=== PATIENT | male | born 1940 | race Caucasian/White ===

== ENCOUNTER 2017-08-12 16:21 | Emergency (ER) | payer MEDICARE, MEDICAID ==
[~2017-08-12] VITALS: Ht 170.2 cm; Wt 78.0 kg
[~2017-08-12 16:21] MED LIST: ASPI-986 PO; LOPE2TAB26 PO; METF500T4 PO; RANI150T7 PO; SIMV20TA6 PO
[2017-08-12 17:26] LABS: BASOPHILS % 0.9 % (0.0-2.0); EOSINOPHILS % 3.3 % (0.0-5.0); HEMATOCRIT. 34.4 % (42.0-52.0); HEMOGLOBIN. 11.7 g/dL (14.0-18.0); LYMPHOCYTES % 16.1 % (20.0-50.0); MEAN CORPUSCULAR HEMOGLOBIN 31.1 pg (28.0-32.0); MEAN CORPUSCULAR VOLUME 91.3 fL (80.0-94.0); MONOCYTES % 7.2 % (2.0-8.0); NEUTROPHILS % 72.5 % (40.0-76.0); PLATELET 187 x1000/uL (130-400); RED BLOOD CELL COUNT 3.77 mill/uL (4.7-6.1); RED CELL DISTRIBUTION WIDTH 13.3 % (11.6-14.6)
[2017-08-12 17:34] LABS: CARBON DIOXIDE 30 mEq/L (21-32); CHLORIDE 104 mEq/L (98-107); ETHANOL BLOOD < 10 mg/dL; PARTIAL THROMBOPLASTIN TIME 25.7 sec (23.4-31.0); PROTHROMBIN TIME 10.7 sec (9.4-11.6)
[2017-08-12 17:40] LABS: TROPONIN I 0.03 ng/mL (0.00-0.04)
[2017-08-12] MEDS ORDERED: ALTEPLASE 100MG/VIAL IV STA (17:55)
[2017-08-12] MEDS ORDERED: ALTEPLASE IV STA (17:55)
[2017-08-12 19:32] VITALS: BP 163/83
== END 2017-08-12 20:10 ==
LOC: ER 17:34
DX: I63.9 Cerebral infarction, unspecified (principal); I10 Essential (primary) hypertension; E11.9 Type 2 diabetes mellitus without complications; D64.9 Anemia, unspecified; Z79.82 Long term (current) use of aspirin
CPT/HCPCS: 36415; 70450; 71010; 80053; 82962; 84484; 85025; 85610; 85730; 93005; 99291; G0482; J2997

== ENCOUNTER 2017-11-26 08:59 | Inpatient (IN) | payer MEDICARE, MEDICAID ==
[~2017-11-26] VITALS: Ht 170.2 cm; Wt 80.3 kg
[2017-11-26] MEDS ORDERED: MORPHINE SULFATE 4 MG/ML CPJ (NOT FOR IM USE) IV STA (10:09)
[2017-11-26] MEDS ORDERED: ONDANSETRON HCL 4MG/2ML VIAL IV STA (10:09)
[2017-11-26] MEDS ORDERED: SODIUM CHLORIDE 0.9% 1,000 ML IV ONE (10:09)
[2017-11-26 10:33] LABS: HEMATOCRIT. 36.9 % (42.0-52.0); HEMOGLOBIN. 12.6 g/dL (14.0-18.0); MEAN CORPUSCULAR VOLUME 90.8 fL (80.0-94.0); MEAN PLATELET VOLUME 9.3 fl (7.4-10.4); PLATELET 172 x1000/uL (130-400); RED BLOOD CELL COUNT 4.06 mill/uL (4.7-6.1); RED CELL DISTRIBUTION WIDTH 13.5 % (11.6-14.6)
[2017-11-26 10:38] LABS: CHLORIDE 100 mEq/L (98-107)
[2017-11-26 10:42] LABS: INR 1.1; PROTHROMBIN TIME 11.4 sec (9.4-11.6)
[2017-11-26 11:09] LABS: PLATELET ESTIMATE NORMAL
[2017-11-26] MEDS ORDERED: PIPERACILLIN/TAZ 3.375G PREMIX 50 ML IV ONE (11:15)
[2017-11-26] MEDS ORDERED: SODIUM CHLORIDE 0.9% 1000ML BAG (SEPSIS BOLUS) IV ONE (11:15)
[2017-11-26 11:35] LABS: CLARITY URINE CLEAR (CLEAR); COLOR URINE YELLOW (YELLOW); KETONES URINE TRACE (NEGATIVE); LEUKOCYTE ESTERASE URINE NEGATIVE (NEGATIVE); NITRITE URINE NEGATIVE (NEGATIVE); OCCULT BLOOD URINE TRACE (NEGATIVE); PROTEIN URINE TRACE (NEGATIVE)
[2017-11-26 14:40] VITALS: BP 135/67
[2017-11-26] MEDS ORDERED: LISI-604 PO (15:44)
[2017-11-26] MEDS ORDERED: METO25TA6 PO (15:44)
[2017-11-26] MEDS ORDERED: RIVA20TA PO (15:45)
[2017-11-26] MEDS ORDERED: OCD PO (15:45)
[2017-11-26] MEDS ORDERED: ESOM40CA PO (15:46)
[2017-11-26] MEDS ORDERED: REPA1TAB PO (15:46)
[2017-11-26 16:00] VITALS: BP 166/66
[2017-11-26] MEDS ORDERED: ENALAPRIL 0.625 MG in DEXTROSE 5% WATER 49.5 ML IV PRN (17:15)
[2017-11-26] MEDS ORDERED: IPRATROPIUM/ALBUTEROL 0.5-3(2.5)MG/3ML NEB INH PRN (17:15)
[2017-11-26] MEDS ORDERED: ONDANSETRON HCL 4MG/2ML VIAL IV PRN (17:15)
[2017-11-26] MEDS ORDERED: DEXTROSE 50% WATER 50ML SYRINGE IV PRN (17:15)
[2017-11-26] MEDS ORDERED: MORPHINE SULFATE 4 MG/ML CPJ (NOT FOR IM USE) IV PRN (17:15)
[2017-11-26] MEDS: INSULIN LISPRO 100 UNITS/ML SUBCUT SCH ×2 (17:36→20:58)
[2017-11-26] MEDS: BLOOD SUGAR DIAGNOSTIC STRIP TEST SCH (17:36)
[2017-11-26] MEDS: PANTOPRAZOLE SODIUM 40 MG/VIAL IV SCH (17:49)
[2017-11-26] MEDS: DEXT 5%/0.45% NACL 1000ML 1,000 ML IV SCH (17:49)
[2017-11-26 18:00] VITALS: BP 149/61
[2017-11-26] MEDS: PIPERACILLIN/TAZ 3.375G PREMIX 50 ML IV SCH (18:00)
[2017-11-26 18:45] LABS: *AMPHETAMINES SCREEN URINE NEGATIVE (NEGATIVE); *BARBITURATES SCREEN URINE NEGATIVE (NEGATIVE); *BENZODIAZEPINES SCREEN URINE NEGATIVE (NEGATIVE); *COCAINE SCREEN URINE NEGATIVE (NEGATIVE)
[2017-11-26 18:46] LABS: CANNABINOID URINE SCREEN NEGATIVE (NEGATIVE); METHADONE URINE SCREEN NEGATIVE (NEGATIVE); OPIATES URINE SCREEN PRESUMTIVE POSITIVE (NEGATIVE); PHENCYCLIDINE URINE SCREEN NEGATIVE (NEGATIVE)
[2017-11-26 18:54] LABS: AMMONIA 32 uMol/L (<32)
[2017-11-26 20:00] VITALS: BP 136/60
[2017-11-26] MEDS: METOPROLOL TARTRATE 25MG TABLET PO SCH (20:54)
[2017-11-26] MEDS: ACETAMINOPHEN 325MG TABLET PO PRN (21:52)
[2017-11-27] VITALS (15 sets, daily range): BP systolic 97–153; BP diastolic 40–67
[2017-11-27] MEDS: BLOOD SUGAR DIAGNOSTIC STRIP TEST SCH ×4 (00:20→17:28)
[2017-11-27] MEDS: PIPERACILLIN/TAZ 3.375G PREMIX 50 ML IV SCH ×4 (00:22→17:19)
[2017-11-27 07:05] LABS: HEMATOCRIT. 31.6 % (42.0-52.0); HEMOGLOBIN. 11.2 g/dL (14.0-18.0); MEAN CORPUSCULAR HEMOGLOBIN 31.7 pg (28.0-32.0); MEAN CORPUSCULAR VOLUME 89.9 fL (80.0-94.0); MEAN PLATELET VOLUME 9.4 fl (7.4-10.4); PLATELET 144 x1000/uL (130-400); RED BLOOD CELL COUNT 3.52 mill/uL (4.7-6.1); RED CELL DISTRIBUTION WIDTH 13.7 % (11.6-14.6)
[2017-11-27 07:54] LABS: CHLORIDE 102 mEq/L (98-107)
[2017-11-27 08:00] LABS: PHOSPHORUS 3.1 mg/dL (2.5-4.9)
[2017-11-27] MEDS: LISINOPRIL 20MG TABLET PO SCH (08:38)
[2017-11-27] MEDS: METOPROLOL TARTRATE 25MG TABLET PO SCH ×2 (08:38→20:28)
[2017-11-27] MEDS: INSULIN LISPRO 100 UNITS/ML SUBCUT SCH ×4 (08:39→20:32)
[2017-11-27] MEDS ORDERED: MAGNESIUM 2 G PREMIX 50 ML IV ONE (11:45)
[2017-11-27] MEDS: MAGNESIUM 2 G PREMIX 50 ML IV SCH ×2 (13:00→14:44)
[2017-11-27] MEDS: DEXT 5%/0.45% NACL 1000ML 1,000 ML IV SCH (13:05)
[2017-11-27] MEDS ORDERED: SODIUM BICARBONATE 4% (2.4MEQ) 5ML VIAL IV ONE (13:25)
[2017-11-27] MEDS ORDERED: LIDOCAINE HCL/PF 1% 10 MG/ML 5ML VIAL ONE (13:25)
[2017-11-27] MEDS ORDERED: FENTANYL CITRATE/PF 50MCG/ML 2ML VIAL ONE (13:36)
[2017-11-27 13:39] LABS: PLATELET ESTIMATE NORMAL
[2017-11-27] MEDS ORDERED: IOHEXOL-300 50 ML BOTTLE IV ONE (13:40)
[2017-11-27] MEDS ORDERED: FENTANYL CITRATE/PF 50MCG/ML 2ML VIAL IV SCH (14:00)
[2017-11-27] MEDS: ACETAMINOPHEN 325MG TABLET PO PRN (15:52)
[2017-11-27] MEDS: PANTOPRAZOLE SODIUM 40 MG/VIAL IV SCH (17:17)
[2017-11-28] VITALS: BP 126/43
[2017-11-28] MEDS: BLOOD SUGAR DIAGNOSTIC STRIP TEST SCH ×5 (00:21→21:45)
[2017-11-28] MEDS: PIPERACILLIN/TAZ 3.375G PREMIX 50 ML IV SCH ×4 (00:23→17:43)
[2017-11-28] MEDS: ACETAMINOPHEN 325MG TABLET PO PRN (00:23)
[2017-11-28 04:00] VITALS: BP 113/54
[2017-11-28 06:53] LABS: BASOPHILS % 0.3 % (0.0-2.0); HEMATOCRIT. 29.9 % (42.0-52.0); HEMOGLOBIN. 10.7 g/dL (14.0-18.0); LYMPHOCYTES % 8.6 % (20.0-50.0); MEAN CORPUSCULAR HEMOGLOBIN 32.6 pg (28.0-32.0); MEAN CORPUSCULAR VOLUME 91.2 fL (80.0-94.0); MEAN PLATELET VOLUME 9.6 fl (7.4-10.4); MONOCYTES % 8.4 % (2.0-8.0); NEUTROPHILS % 81.7 % (40.0-76.0); PLATELET 126 x1000/uL (130-400); RED BLOOD CELL COUNT 3.27 mill/uL (4.7-6.1); RED CELL DISTRIBUTION WIDTH 13.3 % (11.6-14.6)
[2017-11-28 07:12] LABS: CHLORIDE 103 mEq/L (98-107)
[2017-11-28 08:00] VITALS: BP_SYST 129; BP_SYST 136; BP_DIAS 58; BP_DIAS 85
[2017-11-28] MEDS: METOPROLOL TARTRATE 25MG TABLET PO SCH ×2 (09:19→21:31)
[2017-11-28] MEDS: DEXT 5%/0.45% NACL 1000ML 1,000 ML IV SCH (09:19)
[2017-11-28] MEDS: LISINOPRIL 20MG TABLET PO SCH (09:20)
[2017-11-28] MEDS: INSULIN LISPRO 100 UNITS/ML SUBCUT SCH ×4 (09:22→21:00)
[2017-11-28 12:00] VITALS: BP 132/69
[2017-11-28] MEDS ORDERED: POTASSIUM CHLORIDE 20MEQ/PACKET PO NR (14:00)
[2017-11-28 16:00] VITALS: BP 128/54
[2017-11-28] MEDS: PANTOPRAZOLE SODIUM 40 MG/VIAL IV SCH (17:38)
[2017-11-28 20:00] VITALS: BP 136/57
[2017-11-29] VITALS: BP 149/62
[2017-11-29] MEDS: PIPERACILLIN/TAZ 3.375G PREMIX 50 ML IV SCH ×3 (00:16→11:17)
[2017-11-29 04:00] VITALS: BP 173/74
[2017-11-29] MEDS: BLOOD SUGAR DIAGNOSTIC STRIP TEST SCH ×2 (06:52→11:21)
[2017-11-29 08:00] VITALS: BP 182/89
[2017-11-29 08:15] LABS: BASOPHILS % 0.4 % (0.0-2.0); EOSINOPHILS % 4.1 % (0.0-5.0); HEMOGLOBIN. 10.9 g/dL (14.0-18.0); LYMPHOCYTES % 7.1 % (20.0-50.0); MEAN CORPUSCULAR HEMOGLOBIN 31.5 pg (28.0-32.0); MEAN CORPUSCULAR VOLUME 89.7 fL (80.0-94.0); MEAN PLATELET VOLUME 9.5 fl (7.4-10.4); MONOCYTES % 8.5 % (2.0-8.0); NEUTROPHILS % 79.9 % (40.0-76.0); PLATELET 157 x1000/uL (130-400); RED BLOOD CELL COUNT 3.46 mill/uL (4.7-6.1); RED CELL DISTRIBUTION WIDTH 13.5 % (11.6-14.6)
[2017-11-29 08:32] LABS: CHLORIDE 104 mEq/L (98-107)
[2017-11-29] MEDS: LISINOPRIL 20MG TABLET PO SCH (08:42)
[2017-11-29] MEDS: METOPROLOL TARTRATE 25MG TABLET PO SCH (08:43)
[2017-11-29] MEDS: INSULIN LISPRO 100 UNITS/ML SUBCUT SCH ×2 (08:48→13:47)
[2017-11-29] MEDS ORDERED: CLONIDINE 0.1MG TABLET PO PRN (10:15)
[2017-11-29] MEDS ORDERED: CLONIDINE 0.1MG TABLET PO NR (13:00)
[2017-11-29 14:48] VITALS: BP 127/54
== END 2017-11-29 15:46 | disposition home or self-care (01) | DRG 871 ==
LOC: ER 09:39 → 7WST 11:28 → ENRESERV 11:43
PROVIDERS: ADMIT Family Medicine Adult Medicine; ATTEND Family Medicine Adult Medicine
PROC: 0F9430Z Drainage of Gallbladder with Drainage Device, Percutaneous Approach (ICD-10-PCS; principal; 2017-11-27)
DX: A41.9 Sepsis, unspecified organism (principal); J18.9 Pneumonia, unspecified organism; K80.00 Calculus of gallbladder with acute cholecystitis without obstruction; D69.6 Thrombocytopenia, unspecified; I31.3 Pericardial effusion (noninflammatory); E11.65 Type 2 diabetes mellitus with hyperglycemia; J98.11 Atelectasis; N28.1 Cyst of kidney, acquired; K82.8 Other specified diseases of gallbladder; R65.20 Severe sepsis without septic shock; K21.9 Gastro-esophageal reflux disease without esophagitis; E86.0 Dehydration; D64.9 Anemia, unspecified; E87.6 Hypokalemia; N40.0 Benign prostatic hyperplasia without lower urinary tract symptoms; I10 Essential (primary) hypertension; Z86.73 Personal history of transient ischemic attack (TIA), and cerebral infarction without residual deficits; Z90.49 Acquired absence of other specified parts of digestive tract; Z87.891 Personal history of nicotine dependence; Z79.899 Other long term (current) drug therapy
CPT/HCPCS: 36415; 47490; 71045; 74176; 74181; 76705; 80048; 80053; 80076; 80305; 81003; 82140; 82962; 83036; 83605; 83690; 83735; 84100; 85025; 85610; 87040; 87070; 87075; 87086; 87186; 87205; 93306; 93970; 96374; 96375; 99291; C1729; C9113; G0482; J1815; J2270; J2405; J2543; J3010; J3475; J3490; J7030; J7040; J7050; Q9967

== ENCOUNTER 2017-12-26 05:21 | Day surgery (SDC) | payer MEDICARE, MEDICAID ==
[~2017-12-26] VITALS: Ht 167.6 cm; Wt 78.0 kg
[~2017-12-26 05:21] MED LIST changes: -ASPI-986 PO; +ESOM40CA PO; +LISI-604 PO; +METO25TA6 PO; +OCD PO; -RANI150T7 PO; +REPA1TAB PO; +RIVA20TA PO
[2017-12-26] MEDS ORDERED: LACTATED RINGERS 1,000 ML IV SCH ×2 (06:00)
[2017-12-26] MEDS ORDERED: SKIN ADHESIVE 0.7 GM EA TOP ONE (06:56)
[2017-12-26] MEDS ORDERED: BUPIVACAINE HCL/PF 0.5% (5MG/ML) 10ML ONE (06:57)
[2017-12-26] MEDS ORDERED: NEOSTIGMINE METHYLSULFATE 1MG/ML 10 ML VIAL ONE (07:39)
[2017-12-26] MEDS ORDERED: DEXAMETHASONE 4MG/ML 1ML VIAL ONE (07:39)
[2017-12-26] MEDS ORDERED: ROCURONIUM BROMIDE 10MG/ML VIAL 5ML IV ONE (07:39)
[2017-12-26] MEDS ORDERED: PROPOFOL 200MG/20ML VIAL IV ONE (07:39)
[2017-12-26] MEDS ORDERED: CEFAZOLIN SODIUM 1000MG/VIAL ONE (07:39)
[2017-12-26] MEDS ORDERED: EPHEDRINE SULFATE 50MG/ML VIAL ONE (07:39)
[2017-12-26] MEDS ORDERED: LIDOCAINE HCL/PF 1% 10 MG/ML 5ML VIAL ONE (07:39)
[2017-12-26] MEDS ORDERED: GLYCOPYRROLATE 0.2 MG/ML 2ML VIAL ONE (07:39)
[2017-12-26] MEDS ORDERED: SUCCINYLCHOLINE CHLORIDE 200MG/10ML VIAL IV ONE (07:39)
[2017-12-26] MEDS ORDERED: FENTANYL CITRATE/PF 50MCG/ML 2ML VIAL ONE (07:39)
[2017-12-26] MEDS ORDERED: MIDAZOLAM HCL 2 MG/2 ML VIAL ONE (07:39)
[2017-12-26] MEDS ORDERED: ONDANSETRON HCL 4MG/2ML VIAL ONE (07:40)
[2017-12-26] MEDS ORDERED: PHENYLEPHRINE HCL 10 MG/ML 1ML (IV VIAL) IV ONE (07:40)
[2017-12-26] MEDS ORDERED: MORPHINE SULFATE 4 MG/ML CPJ (NOT FOR IM USE) IV PRN (10:00)
[2017-12-26] MEDS ORDERED: ONDANSETRON HCL 4MG/2ML VIAL IV PRN (10:00)
[2017-12-26] MEDS ORDERED: SODIUM CHLORIDE 0.9% 1,000 ML IV ONE (10:00)
[2017-12-26] MEDS ORDERED: HYDROMORPHONE HCL/PF 2MG/ML CPJ IV PRN (10:00)
[2017-12-26] MEDS ORDERED: HYDROCODONE/ACETAMINOPHEN 5/325MG TABLET PO PRN (10:19)
[2018-01-04] MEDS ORDERED: HYDR-4001 PO (22:18)
== END 2017-12-26 10:40 | disposition home or self-care (01) ==
LOC: OR 05:21
PROVIDERS: ATTEND Surgery
DX: K80.10 Calculus of gallbladder with chronic cholecystitis without obstruction (principal); N40.0 Benign prostatic hyperplasia without lower urinary tract symptoms; K21.9 Gastro-esophageal reflux disease without esophagitis; I10 Essential (primary) hypertension; E11.65 Type 2 diabetes mellitus with hyperglycemia; Z79.899 Other long term (current) drug therapy; Z79.84 Long term (current) use of oral hypoglycemic drugs; D64.89 Other specified anemias; Z98.890 Other specified postprocedural states; Z87.891 Personal history of nicotine dependence
CPT/HCPCS: 73706; 82962; 88304; J0330; J0690; J1100; J2250; J2370; J2405; J2704; J2710; J3010; J3490; J7120

== ENCOUNTER 2018-07-08 06:58 | Inpatient (IN) | payer MEDICARE, MEDICAID ==
[2018-07-08] VITALS (14 sets, daily range): BP systolic 103–165; BP diastolic 60–81
[~2018-07-08] VITALS: Ht 170.2 cm; Wt 80.8 kg
[~2018-07-08 06:58] MED LIST changes: +HYDR-4001 PO; +METF-414 PO; -METF500T4 PO
[2018-07-08] MEDS ORDERED: IODIXANOL 320MG/ML 100 ML BOTTLE IV ONE (07:29)
[2018-07-08] MEDS ORDERED: LIDOCAINE HCL 1% 20ML VIAL (Pyxis) INJ ONE (07:29)
[2018-07-08] MEDS ORDERED: ASPIRIN/SOD BICARB/CITRIC ACID 324MG TAB EFF ONE (08:32)
[2018-07-08] MEDS ORDERED: METF-416 PO (08:36)
[2018-07-08] MEDS ORDERED: REPA1TAB5 PO (08:36)
[2018-07-08] MEDS ORDERED: AMLO10TA80 PO (08:36)
[2018-07-08] MEDS ORDERED: [UNRECOGNIZED DRUG - CODE] PO (08:36)
[2018-07-08] MEDS ORDERED: ATOR-2 PO (08:36)
[2018-07-08] MEDS ORDERED: MIDAZOLAM HCL 2 MG/2 ML VIAL ONE (08:39)
[2018-07-08] MEDS ORDERED: FENTANYL CITRATE/PF 50MCG/ML 2ML VIAL ONE (08:39)
[2018-07-08] MEDS ORDERED: IOHEXOL-300 100 ML BOTTLE ONE (09:08)
[2018-07-08] MEDS ORDERED: CLOPIDOGREL 75MG TABLET ONE (10:03)
[2018-07-08] MEDS ORDERED: CEFAZOLIN 1000MG PREMIX 50 ML IV ONE (10:04)
[2018-07-08] MEDS ORDERED: CLOPIDOGREL 75MG TABLET PO SCH (10:15)
[2018-07-08] MEDS ORDERED: SODIUM CHLORIDE 0.45% 1,000 ML IV ONE (10:15)
[2018-07-08] MEDS ORDERED: ACETAMINOPHEN 325MG TABLET PO PRN (10:15)
[2018-07-08] MEDS ORDERED: MORPHINE SULFATE 4 MG/ML CPJ (NOT FOR IM USE) IV PRN (10:15)
[2018-07-08] MEDS ORDERED: ONDANSETRON HCL 4MG/2ML INJ IV PRN (10:15)
[2018-07-08] MEDS ORDERED: ATROPINE SULFATE 1MG/10ML SYR IV PRN (10:15)
[2018-07-08] MEDS ORDERED: DEXTROSE 50% WATER 50ML SYRINGE IV PRN (10:30)
[2018-07-08] MEDS: BLOOD SUGAR DIAGNOSTIC STRIP TEST SCH ×3 (11:02→21:00)
[2018-07-08] MEDS: LISINOPRIL 20MG TABLET PO SCH (11:30)
[2018-07-08] MEDS: INSULIN LISPRO 100 UNITS/ML SUBCUT SCH ×3 (11:31→21:00)
[2018-07-08] MEDS ORDERED: HEPARIN SODIUM 1,000 UNIT/1ML VIAL IV ONE (14:48)
[2018-07-08] MEDS ORDERED: ATORVASTATIN CALCIUM 40MG TABLET PO SCH (21:00)
[2018-07-08] MEDS: METOPROLOL TARTRATE 25MG TABLET PO SCH (21:21)
[2018-07-09] VITALS (7 sets, daily range): BP systolic 120–158; BP diastolic 55–74
[2018-07-09 06:49] LABS: BASOPHILS % 0.8 % (0.0-2.0); EOSINOPHILS % 5.4 % (0.0-5.0); HEMATOCRIT. 29.7 % (42.0-52.0); HEMOGLOBIN. 10.3 g/dL (14.0-18.0); LYMPHOCYTES % 14.8 % (20.0-50.0); MEAN CORPUSCULAR HEMOGLOBIN 31.6 pg (28.0-32.0); MEAN CORPUSCULAR VOLUME 90.7 fL (80.0-94.0); MEAN PLATELET VOLUME 9.1 fl (7.4-10.4); MONOCYTES % 8.1 % (2.0-8.0); NEUTROPHILS % 70.9 % (40.0-76.0); PLATELET 153 x1000/uL (130-400); RED BLOOD CELL COUNT 3.27 mill/uL (4.7-6.1); RED CELL DISTRIBUTION WIDTH 13.6 % (11.6-14.6)
[2018-07-09] MEDS: BLOOD SUGAR DIAGNOSTIC STRIP TEST SCH (06:50)
[2018-07-09 06:54] LABS: CHLORIDE 106 mEq/L (98-107)
[2018-07-09] MEDS: METOPROLOL TARTRATE 25MG TABLET PO SCH (08:22)
[2018-07-09] MEDS: LISINOPRIL 20MG TABLET PO SCH (08:22)
[2018-07-09] MEDS: INSULIN LISPRO 100 UNITS/ML SUBCUT SCH (08:31)
[2018-07-09] MEDS ORDERED: ASPIRIN 325MG TABLET PO SCH (09:00)
[2018-07-09] MEDS ORDERED: CLOPIDOGREL 75MG TABLET PO SCH (09:00)
== END 2018-07-09 10:25 | disposition home or self-care (01) | DRG 254 ==
LOC: CCL 06:58 → 3WST 06:59
PROVIDERS: ADMIT Specialist; ATTEND Specialist
PROC: 047K3ZZ Dilation of Right Femoral Artery, Percutaneous Approach (ICD-10-PCS; principal; 2018-07-08)
PROC: 047H3DZ Dilation of Right External Iliac Artery with Intraluminal Device, Percutaneous Approach (ICD-10-PCS; 2018-07-08)
DX: E11.51 Type 2 diabetes mellitus with diabetic peripheral angiopathy without gangrene (principal); I10 Essential (primary) hypertension; I48.0 Paroxysmal atrial fibrillation; E78.5 Hyperlipidemia, unspecified; Z79.899 Other long term (current) drug therapy; Z79.01 Long term (current) use of anticoagulants
CPT/HCPCS: 36415; 37221; 37224; 75710; 80048; 82962; 85347; 93005; C1725; C1760; C1769; C1876; C1893; C1894; J0690; J1644; J1815; J2250; J3010; J3490; Q9967

== ENCOUNTER 2018-09-11 06:08 | Inpatient (IN) | payer MEDICARE, MEDICAID ==
[~2018-09-11] VITALS: Ht 167.6 cm; Wt 85.3 kg
[2018-09-11] VITALS (15 sets, daily range): BP systolic 119–164; BP diastolic 37–79
[~2018-09-11 06:08] MED LIST changes: +AMLO10TA80 PO; +ATOR-2 PO; -HYDR-4001 PO; -LOPE2TAB26 PO; -METF-414 PO; +METF-416 PO; -OCD PO; -REPA1TAB PO; +REPA1TAB5 PO; -SIMV20TA6 PO; +[UNRECOGNIZED DRUG - CODE] PO
[2018-09-11] MEDS ORDERED: LIDOCAINE HCL 1% 20ML VIAL (Pyxis) INJ ONE (09:24)
[2018-09-11] MEDS ORDERED: IODIXANOL 320MG/ML 100 ML BOTTLE IV ONE ×2 (09:24→10:26)
[2018-09-11] MEDS ORDERED: FENTANYL CITRATE/PF 50MCG/ML 2ML VIAL ONE (09:34)
[2018-09-11] MEDS ORDERED: MIDAZOLAM HCL 2 MG/2 ML VIAL ONE (09:34)
[2018-09-11] MEDS ORDERED: IOHEXOL-300 100 ML BOTTLE ONE (09:56)
[2018-09-11] MEDS ORDERED: CLOP75TA33 PO (10:02)
[2018-09-11] MEDS ORDERED: FURO20TA4 PO (10:02)
[2018-09-11] MEDS ORDERED: ASPIRIN 325MG TABLET ONE (10:43)
[2018-09-11] MEDS ORDERED: CLOPIDOGREL 75MG TABLET ONE (10:44)
[2018-09-11] MEDS ORDERED: ONDANSETRON HCL 4MG/2ML INJ IV PRN (11:00)
[2018-09-11] MEDS ORDERED: ATROPINE SULFATE 1MG/10ML SYR IV PRN (11:00)
[2018-09-11] MEDS ORDERED: ACETAMINOPHEN 325MG TABLET PO PRN (11:00)
[2018-09-11] MEDS ORDERED: HEPARIN SODIUM 1,000 UNIT/1ML VIAL IV ONE (15:46)
[2018-09-11] MEDS ORDERED: DEXTROSE 50% WATER 50ML SYRINGE IV PRN (22:15)
[2018-09-11] MEDS ORDERED: GUAIFENESIN 200MG/10ML SUGAR FREE UDC PO PRN (22:15)
[2018-09-11] MEDS: INSULIN LISPRO 100 UNITS/ML SUBCUT SCH (22:15)
[2018-09-11] MEDS: BLOOD SUGAR DIAGNOSTIC STRIP TEST SCH (22:25)
[2018-09-12] VITALS (8 sets, daily range): BP systolic 108–154; BP diastolic 49–75
[2018-09-12] MEDS: BLOOD SUGAR DIAGNOSTIC STRIP TEST SCH ×2 (06:02→11:55)
[2018-09-12 06:36] LABS: BASOPHILS % 0.7 % (0.0-2.0); EOSINOPHILS % 3.9 % (0.0-5.0); HEMATOCRIT. 30.3 % (42.0-52.0); HEMOGLOBIN. 10.4 g/dL (14.0-18.0); LYMPHOCYTES % 11.7 % (20.0-50.0); MEAN CORPUSCULAR HEMOGLOBIN 31.8 pg (28.0-32.0); MEAN CORPUSCULAR VOLUME 92.1 fL (80.0-94.0); MEAN PLATELET VOLUME 8.9 fl (7.4-10.4); MONOCYTES % 8.4 % (2.0-8.0); NEUTROPHILS % 75.3 % (40.0-76.0); PLATELET 157 x1000/uL (130-400); RED BLOOD CELL COUNT 3.29 mill/uL (4.7-6.1); RED CELL DISTRIBUTION WIDTH 13.6 % (11.6-14.6)
[2018-09-12 06:39] LABS: CHLORIDE 106 mEq/L (98-107)
[2018-09-12] MEDS: INSULIN LISPRO 100 UNITS/ML SUBCUT SCH ×2 (07:20→11:56)
[2018-09-12] MEDS ORDERED: CLOPIDOGREL 75MG TABLET PO SCH (09:00)
[2018-09-12] MEDS ORDERED: ASPIRIN 325MG TABLET PO SCH (09:00)
== END 2018-09-12 14:15 | disposition home or self-care (01) | DRG 253 ==
LOC: CCL 06:08 → 3WST 06:09
PROVIDERS: ADMIT Specialist; ATTEND Specialist
PROC: 047L3EZ Dilation of Left Femoral Artery with Two Intraluminal Devices, Percutaneous Approach (ICD-10-PCS; principal; 2018-09-11)
DX: E11.51 Type 2 diabetes mellitus with diabetic peripheral angiopathy without gangrene (principal); I70.92 Chronic total occlusion of artery of the extremities; E78.5 Hyperlipidemia, unspecified; I10 Essential (primary) hypertension; I70.212 Atherosclerosis of native arteries of extremities with intermittent claudication, left leg; I48.0 Paroxysmal atrial fibrillation; K21.9 Gastro-esophageal reflux disease without esophagitis; Z79.01 Long term (current) use of anticoagulants; Z82.49 Family history of ischemic heart disease and other diseases of the circulatory system; Z83.3 Family history of diabetes mellitus
CPT/HCPCS: 36415; 37226; 75710; 80048; 82962; C1714; C1725; C1760; C1769; C1876; C1887; C1893; C1894; J1644; J2250; J3010; J3490; Q9967

== ENCOUNTER 2021-06-14 10:59 | Inpatient (IN) | payer MEDICARE, MEDICAID ==
[~2021-06-14] VITALS: Ht 177.8 cm; Wt 81.6 kg
[~2021-06-14 10:59] MED LIST changes: -AMLO10TA80 PO; +AMLO5TAB88 MT; +CALC-992 PO; +CEPH500C2 MT; +CLOP75TA33 PO; +DOCU-150 MT; +EMPA25TA MT; +FURO20TA4 PO; -LISI-604 PO; -METF-416 PO; -REPA1TAB5 PO; +RIVA20TA MT; -RIVA20TA PO; -[UNRECOGNIZED DRUG - CODE] PO
[2021-06-14] MEDS ORDERED: SODIUM CHLORIDE 0.9% 1,000 ML IV ONE (11:15)
[2021-06-14 11:49] LABS: CHLORIDE 108 mEq/L (98-107)
[2021-06-14 11:50] LABS: BASOPHILS % 0.6 % (0.0-2.0); CLARITY URINE CLEAR (CLEAR); COLOR URINE YELLOW (YELLOW); EOSINOPHILS % 3.2 % (0.0-5.0); HEMATOCRIT. 29.3 % (42.0-52.0); HEMOGLOBIN. 9.8 g/dL (14.0-18.0); KETONES URINE NEGATIVE (NEGATIVE); LEUKOCYTE ESTERASE URINE 2+ (NEGATIVE); LYMPHOCYTES % 7.5 % (20.0-50.0); MEAN CORPUSCULAR HEMOGLOBIN 30.7 pg (28.0-32.0); MEAN CORPUSCULAR VOLUME 91.4 fL (80.0-94.0); MEAN PLATELET VOLUME 8.9 fl (7.4-10.4); MONOCYTES % 5.9 % (2.0-8.0); NEUTROPHILS % 82.8 % (40.0-76.0); NITRITE URINE NEGATIVE (NEGATIVE); OCCULT BLOOD URINE 2+ (NEGATIVE); PLATELET 156 x1000/uL (130-400); PROTEIN URINE TRACE (NEGATIVE); RED CELL DISTRIBUTION WIDTH 15.5 % (11.6-14.6); SPECIFIC GRAVITY URINE 1.027 (1.005-1.030); UROBILINOGEN URINE 0.2 E.U./dL (0.2-1.0)
[2021-06-14 11:53] LABS: PROTHROMBIN TIME 10.9 sec (9.6-11.0)
[2021-06-14] MEDS ORDERED: CEFTRIAXONE 1 G PREMIX 50 ML IV ONE (12:00)
[2021-06-14] MEDS ORDERED: SODIUM CHLORIDE 0.9% 1000ML BAG (SEPSIS BOLUS) IV ONE (12:30)
[2021-06-14] MEDS ORDERED: MAGNESIUM/ALUMINUM HYDROXIDE/SIMETHICONE 30ML UDC PO PRN (16:15)
[2021-06-14] MEDS ORDERED: ONDANSETRON HCL 4MG/2ML INJ IV PRN (16:15)
[2021-06-14] MEDS ORDERED: ACETAMINOPHEN 325MG TABLET PO PRN ×2 (16:15)
[2021-06-14] MEDS ORDERED: DIPHENHYDRAMINE 50MG/ML VIAL IV PRN (16:15)
[2021-06-14] MEDS ORDERED: DEXTROSE 50% WATER 50ML SYRINGE IV PRN (16:15)
[2021-06-14] MEDS ORDERED: CEFTRIAXONE 1 G PREMIX 50 ML IV SCH (16:15)
[2021-06-14] MEDS: ASPIRIN 81MG TABLET PO SCH (16:30)
[2021-06-14] MEDS ORDERED: RIVAROXABAN 10 MG TABLET PO SCH (17:00)
[2021-06-14] MEDS: BLOOD SUGAR DIAGNOSTIC STRIP TEST SCH ×2 (17:58→21:21)
[2021-06-14] MEDS: INSULIN LISPRO 100 UNITS/ML SUBCUT SCH ×2 (19:12→21:00)
[2021-06-14] MEDS: RIVAROXABAN 15 MG TABLET PO SCH (19:13)
[2021-06-14 20:10] VITALS: BP 162/71
[2021-06-14] MEDS ORDERED: ATORVASTATIN CALCIUM 20MG TABLET PO SCH (21:00)
[2021-06-14] MEDS ORDERED: ZOLPIDEM TARTRATE 5MG TABLET PO PRN (21:00)
[2021-06-14] MEDS: SODIUM CHLORIDE 0.9% INJ 3ML FLUSH IVF SCH (21:22)
[2021-06-14] MEDS: ATORVASTATIN CALCIUM 40MG TABLET PO SCH (21:22)
[2021-06-15] VITALS (9 sets, daily range): BP systolic 119–164; BP diastolic 37–62
[2021-06-15] MEDS ORDERED: GLIP5TAB12 PO (03:47)
[2021-06-15] MEDS ORDERED: LOSA50TA41 PO (03:47)
[2021-06-15] MEDS ORDERED: METO25TA6 PO (03:47)
[2021-06-15] MEDS ORDERED: SITA100T11 PO (03:47)
[2021-06-15] MEDS ORDERED: *PATIENT'S OWN MEDICATION STORAGE XX SCH (05:15)
[2021-06-15] MEDS: GLIPIZIDE 5MG TABLET PO SCH (06:46)
[2021-06-15] MEDS: SODIUM CHLORIDE 0.9% INJ 3ML FLUSH IVF SCH ×3 (06:46→21:21)
[2021-06-15] MEDS: BLOOD SUGAR DIAGNOSTIC STRIP TEST SCH ×4 (06:46→21:16)
[2021-06-15] MEDS: INSULIN LISPRO 100 UNITS/ML SUBCUT SCH ×4 (06:55→21:00)
[2021-06-15 07:21] LABS: BASOPHILS % 0.9 % (0.0-2.0); EOSINOPHILS % 4.3 % (0.0-5.0); HEMATOCRIT. 28.4 % (42.0-52.0); HEMOGLOBIN. 9.6 g/dL (14.0-18.0); LYMPHOCYTES % 11.4 % (20.0-50.0); MEAN CORPUSCULAR HEMOGLOBIN 31.1 pg (28.0-32.0); MEAN CORPUSCULAR VOLUME 92.2 fL (80.0-94.0); MEAN PLATELET VOLUME 8.3 fl (7.4-10.4); MONOCYTES % 6.8 % (2.0-8.0); NEUTROPHILS % 76.6 % (40.0-76.0); PLATELET 150 x1000/uL (130-400); RED BLOOD CELL COUNT 3.08 mill/uL (4.7-6.1); RED CELL DISTRIBUTION WIDTH 15.9 % (11.6-14.6)
[2021-06-15] MEDS: CLOPIDOGREL 75MG TABLET PO SCH (08:40)
[2021-06-15] MEDS: ASPIRIN 81MG TABLET PO SCH (08:40)
[2021-06-15] MEDS: CLONIDINE 0.1MG TABLET PO PRN (08:41)
[2021-06-15] MEDS: CEFTRIAXONE 1,000 MG in DEXTROSE 5% WATER 50 ML IV SCH (09:49)
[2021-06-15] MEDS: RIVAROXABAN 15 MG TABLET PO SCH (17:58)
[2021-06-15] MEDS: ATORVASTATIN CALCIUM 40MG TABLET PO SCH (21:21)
[2021-06-16 04:00] VITALS: BP_SYST 160; BP_SYST 170; BP_DIAS 57; BP_DIAS 64
[2021-06-16] MEDS: SODIUM CHLORIDE 0.9% INJ 3ML FLUSH IVF SCH ×2 (06:00→14:00)
[2021-06-16] MEDS: BLOOD SUGAR DIAGNOSTIC STRIP TEST SCH ×3 (06:45→17:25)
[2021-06-16] MEDS: GLIPIZIDE 5MG TABLET PO SCH (07:44)
[2021-06-16 08:24] VITALS: BP 156/62
[2021-06-16] MEDS: CLOPIDOGREL 75MG TABLET PO SCH (08:24)
[2021-06-16] MEDS: ASPIRIN 81MG TABLET PO SCH (08:24)
[2021-06-16] MEDS: CEFTRIAXONE 1,000 MG in DEXTROSE 5% WATER 50 ML IV SCH (08:25)
[2021-06-16] MEDS: INSULIN LISPRO 100 UNITS/ML SUBCUT SCH ×3 (08:31→17:50)
[2021-06-16 12:27] VITALS: BP 166/78
[2021-06-16 16:06] VITALS: BP 177/65
[2021-06-16 16:57] VITALS: BP 107/61
[2021-06-16] MEDS: RIVAROXABAN 15 MG TABLET PO SCH (17:24)
[2021-06-16] MEDS: CLONIDINE 0.1MG TABLET PO PRN (17:25)
== END 2021-06-16 18:35 | disposition home or self-care (01) | DRG 872 ==
LOC: ER 10:59 → 6WST 12:29 → EDBEDREQTM 12:44 → EDBEDREQ 12:44 → ENRESERV 19:26
PROVIDERS: ADMIT Internal Medicine; ATTEND Internal Medicine
DX: A41.9 Sepsis, unspecified organism (principal); N39.0 Urinary tract infection, site not specified; I13.0 Hypertensive heart and chronic kidney disease with heart failure and stage 1 through stage 4 chronic kidney disease, or unspecified chronic kidney disease; I69.351 Hemiplegia and hemiparesis following cerebral infarction affecting right dominant side; E11.22 Type 2 diabetes mellitus with diabetic chronic kidney disease; E78.00 Pure hypercholesterolemia, unspecified; E86.0 Dehydration; I44.7 Left bundle-branch block, unspecified; I48.0 Paroxysmal atrial fibrillation; N18.9 Chronic kidney disease, unspecified; E11.51 Type 2 diabetes mellitus with diabetic peripheral angiopathy without gangrene; E78.5 Hyperlipidemia, unspecified; I25.10 Atherosclerotic heart disease of native coronary artery without angina pectoris; I50.9 Heart failure, unspecified; Z90.49 Acquired absence of other specified parts of digestive tract; Z79.899 Other long term (current) drug therapy; Z79.01 Long term (current) use of anticoagulants
CPT/HCPCS: 36415; 71045; 80048; 80053; 81003; 82962; 83036; 83605; 83735; 84145; 84484; 85025; 93005; 93880; 99291; J0696; J1815; J7030; J7040; J7060

== ENCOUNTER 2021-07-12 06:15 | Inpatient (IN) | payer MEDICARE, MEDICAID ==
[2021-07-12] VITALS (9 sets, daily range): BP systolic 137–188; BP diastolic 35–89
[~2021-07-12] VITALS: Ht 170.2 cm; Wt 76.7 kg
[~2021-07-12 06:15] MED LIST changes: -AMLO5TAB88 MT; -CEPH500C2 MT; -DOCU-150 MT; -ESOM40CA PO; -FURO20TA4 PO; +GLIP5TAB12 PO; +LOSA50TA41 PO; +SITA100T11 PO
[2021-07-12] MEDS ORDERED: LOSA25TA26 MT (07:53)
[2021-07-12] MEDS ORDERED: FENTANYL CITRATE/PF 50MCG/ML 2ML VIAL ONE (08:50)
[2021-07-12] MEDS ORDERED: MIDAZOLAM HCL 2 MG/2 ML VIAL ONE (08:50)
[2021-07-12] MEDS ORDERED: HEPARIN 1000 UNITS/ML 10ML ONE (08:51)
[2021-07-12] MEDS ORDERED: IOHEXOL-300 100 ML BOTTLE ONE (08:51)
[2021-07-12] MEDS ORDERED: IODIXANOL 320MG/ML 100 ML BOTTLE IV ONE ×2 (08:51→09:48)
[2021-07-12] MEDS ORDERED: LIDOCAINE HCL 1% 10 MG/ML 10ML VIAL ONE (08:51)
[2021-07-12] MEDS ORDERED: CLOPIDOGREL 75MG TABLET ONE (10:18)
[2021-07-12] MEDS ORDERED: ASPIRIN 325MG TABLET ONE (10:19)
[2021-07-12] MEDS ORDERED: ONDANSETRON HCL 4MG/2ML INJ IV PRN (10:30)
[2021-07-12] MEDS ORDERED: ACETAMINOPHEN 325MG TABLET PO PRN (10:30)
[2021-07-12] MEDS ORDERED: ATROPINE SULFATE 1MG/10ML SYR IV PRN (10:30)
[2021-07-12] MEDS ORDERED: DEXTROSE 50% WATER 50ML SYRINGE IV PRN (14:45)
[2021-07-12] MEDS ORDERED: ZOLPIDEM TARTRATE 5MG TABLET PO PRN (16:00)
[2021-07-12] MEDS: BLOOD SUGAR DIAGNOSTIC STRIP TEST SCH ×2 (17:10→21:30)
[2021-07-12] MEDS: METOPROLOL TARTRATE 25MG TABLET PO SCH (17:15)
[2021-07-12] MEDS: GLIPIZIDE 5MG TABLET PO SCH (17:15)
[2021-07-12] MEDS: INSULIN LISPRO 100 UNITS/ML SUBCUT SCH ×2 (17:30→21:38)
[2021-07-12] MEDS ORDERED: ATORVASTATIN CALCIUM 40MG TABLET PO SCH (21:00)
[2021-07-13] VITALS: BP 130/64
[2021-07-13 02:00] VITALS: BP 119/37
[2021-07-13 04:00] VITALS: BP 127/56
[2021-07-13 06:00] VITALS: BP 144/64
[2021-07-13] MEDS: BLOOD SUGAR DIAGNOSTIC STRIP TEST SCH (06:04)
[2021-07-13 06:32] LABS: BASOPHILS % 0.9 % (0.0-2.0); EOSINOPHILS % 4.8 % (0.0-5.0); HEMATOCRIT. 32.4 % (42.0-52.0); HEMOGLOBIN. 10.9 g/dL (14.0-18.0); LYMPHOCYTES % 11.9 % (20.0-50.0); MEAN CORPUSCULAR HEMOGLOBIN 30.5 pg (28.0-32.0); MEAN CORPUSCULAR VOLUME 90.6 fL (80.0-94.0); MEAN PLATELET VOLUME 8.9 fl (7.4-10.4); MONOCYTES % 6.7 % (2.0-8.0); NEUTROPHILS % 75.7 % (40.0-76.0); PLATELET 164 x1000/uL (130-400); RED BLOOD CELL COUNT 3.57 mill/uL (4.7-6.1); RED CELL DISTRIBUTION WIDTH 14.6 % (11.6-14.6)
[2021-07-13] MEDS: INSULIN LISPRO 100 UNITS/ML SUBCUT SCH (07:20)
[2021-07-13 08:00] VITALS: BP 114/62
[2021-07-13] MEDS: METOPROLOL TARTRATE 25MG TABLET PO SCH (08:46)
[2021-07-13] MEDS: GLIPIZIDE 5MG TABLET PO SCH (08:46)
[2021-07-13] MEDS ORDERED: ASPIRIN 325MG TABLET PO SCH (09:00)
[2021-07-13] MEDS ORDERED: LOSARTAN POTASSIUM 25 MG TABLET PO SCH (09:00)
[2021-07-13] MEDS ORDERED: LINAGLIPTIN 5MG TABLET PO SCH (09:00)
[2021-07-13] MEDS ORDERED: MEDICATION NOT ON FORMULARY EA (Sitagliptin Phosphate (Januvia) 100 MG) PO SCH (09:00)
[2021-07-13] MEDS ORDERED: EMPAGLIFLOZIN MT SCH (09:00)
[2021-07-13] MEDS ORDERED: CLOPIDOGREL 75MG TABLET PO SCH ×2 (09:00)
== END 2021-07-13 10:40 | disposition home health service (06) | DRG 247 ==
LOC: CCL 06:15 → 3WST 06:16
PROVIDERS: ADMIT Specialist; ATTEND Specialist
PROC: 027035Z Dilation of Coronary Artery, One Artery with Two Drug-eluting Intraluminal Devices, Percutaneous Approach (ICD-10-PCS; principal; 2021-07-12)
PROC: B211YZZ Fluoroscopy of Multiple Coronary Arteries using Other Contrast (ICD-10-PCS; 2021-07-12)
PROC: B215YZZ Fluoroscopy of Left Heart using Other Contrast (ICD-10-PCS; 2021-07-12)
PROC: 4A023N7 Measurement of Cardiac Sampling and Pressure, Left Heart, Percutaneous Approach (ICD-10-PCS; 2021-07-12)
DX: I25.119 Atherosclerotic heart disease of native coronary artery with unspecified angina pectoris (principal); E11.22 Type 2 diabetes mellitus with diabetic chronic kidney disease; E11.51 Type 2 diabetes mellitus with diabetic peripheral angiopathy without gangrene; E78.5 Hyperlipidemia, unspecified; I12.9 Hypertensive chronic kidney disease with stage 1 through stage 4 chronic kidney disease, or unspecified chronic kidney disease; I25.82 Chronic total occlusion of coronary artery; I44.7 Left bundle-branch block, unspecified; N18.9 Chronic kidney disease, unspecified; Z79.84 Long term (current) use of oral hypoglycemic drugs; Z86.73 Personal history of transient ischemic attack (TIA), and cerebral infarction without residual deficits; Z79.899 Other long term (current) drug therapy; Z79.01 Long term (current) use of anticoagulants; Z79.02 Long term (current) use of antithrombotics/antiplatelets; Z87.891 Personal history of nicotine dependence
CPT/HCPCS: 36415; 80048; 82962; 83036; 85025; 85347; 92928; 93005; 93458; C1769; C1874; C1887; C1893; J1644; J1815; J2250; J3010; J3490; Q9967

== ENCOUNTER 2023-03-05 13:17 | Emergency (ER) | payer MEDICARE, MEDICAID ==
[~2023-03-05] VITALS: Ht 172.7 cm; Wt 72.0 kg
[~2023-03-05 13:17] MED LIST changes: +ASPI-1406 PO; +DULA0.75 SQ; +LOSA25TA26 MT; -LOSA50TA41 PO; +TAMS-11 PO
[2023-03-05 13:22] VITALS: O2SAT 100
[2023-03-05] MEDS ORDERED: SODIUM CHLORIDE 0.9% 1,000 ML IV ONE (13:45)
[2023-03-05 14:23] LABS: HEMATOCRIT. 32.4 % (42.0-52.0); HEMOGLOBIN. 10.9 g/dL (14.0-18.0); MEAN CORPUSCULAR HEMOGLOBIN 29.8 pg (28.0-32.0); MEAN CORPUSCULAR VOLUME 88.4 fL (80.0-94.0); MEAN PLATELET VOLUME 9.2 fl (7.4-10.4); PLATELET 142 x1000/uL (130-400); RED BLOOD CELL COUNT 3.67 mill/uL (4.7-6.1); RED CELL DISTRIBUTION WIDTH 16.7 % (11.6-14.6)
[2023-03-05 14:32] LABS: CHLORIDE 104 mEq/L (98-107)
[2023-03-05 15:10] LABS: PLATELET ESTIMATE NORMAL
[2023-03-05] MEDS ORDERED: INSULIN REGULAR (HUMULIN R) 300UNITS/3ML VIAL IV ONE (17:30)
[2023-03-06] MEDS ORDERED: AZIT250T12 MT (00:46)
[2023-03-06] MEDS ORDERED: DULA0.75 SQ (00:46)
[2023-03-06] MEDS ORDERED: EMPA25TA MT (00:46)
[2023-03-06 01:30] VITALS: BP 125/80; PULSE 75; RESP 20; TEMP 98.3
== END 2023-03-06 01:30 | disposition home or self-care (01) ==
LOC: ER 13:17
DX: R53.1 Weakness (principal); R42 Dizziness and giddiness; I11.0 Hypertensive heart disease with heart failure; I50.9 Heart failure, unspecified; E11.9 Type 2 diabetes mellitus without complications; Z79.899 Other long term (current) drug therapy
CPT/HCPCS: 99285; 74176; 96374; 71045; 80053; 83880; 85025; 36415; 93005; 82962 ×2; J7030; J1815

== ENCOUNTER → 2023-04-17 | Outpatient (CLI) | payer MEDICARE, MEDICAID ==
[~2023-04-17] MED LIST changes: +AZIT250T12 MT
== END | disposition home or self-care (01) ==
LOC: RAD 11:41
PROVIDERS: ATTEND Specialist
DX: J18.9 Pneumonia, unspecified organism (principal)
CPT/HCPCS: 71046

== ENCOUNTER 2024-12-25 16:21 | Emergency (ER) | payer MEDICARE, MEDICAID ==
[~2024-12-25] VITALS: Ht 170.2 cm; Wt 76.2 kg
[~2024-12-25 16:21] MED LIST changes: -GLIP5TAB12 PO; +GLIP5TAB22 PO; -TAMS-11 PO; +TAMS-54 PO
[2024-12-25 16:38] VITALS: BP 136/51; TEMP 36.9; O2SAT 96
[2024-12-25 16:39] VITALS: PULSE 74; RESP 19; O2SAT 96
[2024-12-25 18:49] LABS: BASOPHILS % 0.7 % (0.0-2.0); EOSINOPHILS % 4.3 % (0.0-5.0); HEMATOCRIT. 30.8 % (42.0-52.0); HEMOGLOBIN. 10.4 g/dL (14.0-18.0); LYMPHOCYTES % 7.6 % (20.0-50.0); MEAN CORPUSCULAR HEMOGLOBIN 30.4 pg (28.0-32.0); MEAN CORPUSCULAR HGB CONC 33.7 g/dL (31.0-37.0); MEAN CORPUSCULAR VOLUME 90.2 fL (80.0-94.0); MEAN PLATELET VOLUME 9.3 fl (7.4-10.4); MONOCYTES % 9.4 % (2.0-8.0); PLATELET 149 x1000/uL (130-400); RED BLOOD CELL COUNT 3.41 mill/uL (4.7-6.1); RED CELL DISTRIBUTION WIDTH 15.1 % (11.6-14.6); WHITE BLOOD COUNT 6.8 x1000/uL (4.5-11.0)
[2024-12-25 19:00] LABS: POTASSIUM 4.8 mEq/L (3.5-5.1)
[2024-12-25 19:01] LABS: CALCIUM 8.7 mg/dL (8.7-10.4)
[2024-12-25 19:06] LABS: CREATININE 1.3 mg/dL (0.6-1.3)
[2024-12-25] MEDS ORDERED: SULF1TAB48 MT (19:25)
[2024-12-25] MEDS ORDERED: AMOX1TAB16 MT (19:25)
== END 2024-12-25 20:48 | disposition home or self-care (01) ==
LOC: ER 16:21
DX: E11.621 Type 2 diabetes mellitus with foot ulcer (principal); I25.2 Old myocardial infarction; I10 Essential (primary) hypertension; L03.115 Cellulitis of right lower limb; Z79.899 Other long term (current) drug therapy; Z79.82 Long term (current) use of aspirin; Z95.1 Presence of aortocoronary bypass graft; Z86.73 Personal history of transient ischemic attack (TIA), and cerebral infarction without residual deficits
CPT/HCPCS: 36415; 73630; 80048; 85025; 99284